=== PATIENT | female | born 1985 | race Caucasian/White ===

== ENCOUNTER 2019-09-26 15:36 | Outpatient (CLI) | payer SELFPAY ==
--- NOTE | 2019-09-26 15:46 | US_ITS ---
WS: [id number] TRANSABDOMINAL PELVIC AND TRANSVAGINAL PELVIC ULTRASOUND HISTORY: PELVIC MASS COMPARISON: None available. Uterus: 9.6 cm x 6.2 cm x 5.0 cm. Slightly enlarged uterus is anteverted. No fibroid or mass. Endometrium: 0.5 cm. Normal trilaminar endometrium. Right ovary: 2.8 cm x 2.6 cm x 2.2 cm. RIGHT ovary is poorly visualized. Small follicles. Normal size with good vascularity. Left ovary: 3.5 cm x 3.3 cm x 1.8 cm. Normal size ovary and normal vascularity with small follicles. No free fluid. US/US pelvic with transvaginal IMPRESSION: Negative pelvic ultrasound. No mass identified by ultrasound.
== END 2019-09-26 15:37 | disposition home or self-care (01) ==
LOC: RAD 15:40
PROVIDERS: Family Provider Specialist; PCP Family Medicine
DX: R19.00 Intra-abdominal and pelvic swelling, mass and lump, unspecified site (principal)
CPT/HCPCS: 76830; 76856

== ENCOUNTER → 2020-01-24 07:49 | Outpatient (BNVA) | payer SELFPAY | PROVIDERS: Family Provider Specialist; PCP Family Medicine; Visit Provider Nurse Practitioner | DX: G43.711 Chronic migraine without aura, intractable, with status migrainosus (principal) | CPT/HCPCS: 99213 ==

== ENCOUNTER 2020-03-07 06:51 | Outpatient (CLI) | payer SELFPAY ==
--- NOTE | 2020-03-07 07:00 | XR_ITS ---
WS: [id number] XR KUB [id number] REASON FOR EXAM: URETERAL STONE FINDINGS: No retroperitoneal or free air. Normal bowel gas pattern. No urinary tract calculi are identified. XR/XR KUB [id number] IMPRESSION: No significant abnormality. No urinary tract calculi identified.
== END 2020-03-07 06:52 | disposition home or self-care (01) ==
LOC: RAD 06:52
PROVIDERS: Family Provider Specialist; PCP Family Medicine; Visit Provider Urology
DX: N20.1 Calculus of ureter (principal)
CPT/HCPCS: 74018; 81001

== ENCOUNTER → 2021-10-16 15:47 | Outpatient (BNVA) | payer MEDICAID, SELFPAY | PROVIDERS: Family Provider Specialist; PCP Family Medicine; Visit Provider Nurse Practitioner | DX: R53.1 Weakness (principal); M54.12 Radiculopathy, cervical region; R20.2 Paresthesia of skin; F90.9 Attention-deficit hyperactivity disorder, unspecified type | CPT/HCPCS: 99213; 99214 ==

== ENCOUNTER 2022-08-25 10:00 | Inpatient (IN) | payer MEDICAID, SELFPAY ==
[2022-08-25] VITALS (45 sets, daily range): BP systolic 87–136; BP diastolic 52–74; PULSE 76–123; RESP 17–18; TEMP 36.8; O2SAT 92–100; BMI 36.5
[2022-08-25 09:34] LABS: Basophils # 0.1 10^3/uL (0.0-0.1); Basophils % 0.5 %; Eosinophils # 0.1 10^3/uL (0.0-0.8); Eosinophils % 0.8 %; Hematocrit 36.5 % (37.0-47.0); Hemoglobin 11.5 g/dL (11.5-15.3); Lymphocytes # 3.3 10^3/uL (0.8-4.8); Lymphocytes % 21.1 %; Mean Corpuscular HGB Conc 31.5 g/dL (30.0-36.0); Mean Corpuscular Hemoglobin 26.6 pg (28.0-34.0); Mean Corpuscular Volume 84.5 fl (81-99); Mean Platelet Volume 12.2 fL (7.4-10.4); Monocytes # 1.1 10^3/uL (0.2-0.9); Monocytes % 7.1 %; Neutrophils # 10.62 10^3/uL (1.8-7.7); Neutrophils % 68.9 %; Nucleated Red Blood Cells % 0 %; Platelet Count 266 10^3/cmm (130-400); Red Blood Count 4.32 10^6/uL (4.1-5.3); Red Cell Distribution Width 14.5 % (12.1-15.1); White Blood Count 15.4 10^3/uL (4.0-10.0)
[2022-08-25] MEDS: miSOPROStol 100 mcg tablet 25 MCG VAGINAL (09:39)
[2022-08-25] MEDS: lactated ringers 1,000 ML 999 ML IV ×2 (11:31→12:40)
--- NOTE | 2022-08-25 12:26 | P.HP_ITS ---
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 The patient's care has been unremarkable except for a delayed entrance into care. Patient's lab work was unremarkable. Patient's course has been unremarkable. Estimated due date was confirmed by second trimester ultrasound. Patient was GBS negative. Present Details : 4 Para: 3 Obstetrical complications: none Medical complications OB: none Labs Rubella: Immune RPR: Negative GBS: Negative L&D/Induction Specific History Indication for induction OB: post dates Review of Systems General: Reports: 10 or more systems reviewed and unremarkable except in HPI and below Const: Reports: fatigue; Denies: fever(s) or change in weight Eyes: Denies: change in vision, blurry vision, blind spots, photophobia, eye discomfort, seeing flashes or other (Glaucoma) ENMT: Denies: odynophagia, hoarseness, change in hearing, tinnitus, sinus pain or other (Loss of taste/smell) Card: Denies: chest pain, palpitations, syncope or other (Calf cramps) Resp: Reports: wheezing; Denies: dyspnea, non-productive cough or hemoptysis GI: Reports: nausea; Denies: abdominal pain, heartburn, diarrhea, constipation or hematochezia : Denies: urinary frequency or urinary incontinence Musc: Reports: neck pain, muscle weakness and other (Muscle pain) Skin/Breast: Denies: rash, new lesions or breast mass Neuro: Reports: headache(s) and numbness in extremities; Denies: weakness in extremities, sensory changes, difficulty walking, Slurred speech present, seizure-like activity or other (Sleep Apnea) Psych: Reports: depression, irritability, memory loss and difficulty concentrating; Denies: other (Personality changes) Endo: Denies: polyuria, polydipsia, excessive sweating or change in body appearance Sebastian/Lymph: Denies: easy bruising, easy bleeding or enlarged lymph nodes Medications/Allergies Home Medications Medication Instructions Recorded Confirmed Last Taken Type norgestimate 0.18 mg/0.215 mg/0.25 1 tab PO DAILY 02/20/20 12/23/21 Unknown History mg-ethinyl estradiol 25 mcg tablet gabapentin 300 mg capsule 300 mg PO TID 10/09/21 12/23/21 Unknown History alprazolam 0.25 mg tablet 0.25 mg PO DAILY PRN anxiety 30 12/09/21 12/23/21 Unknown Rx days #30 tabs tizanidine 2 mg tablet See Rx Instructions .Route 12/22/21 12/23/21 Unknown Rx .COMPLEX #60 tabs dextroamphetamine-amphetamine 10 10 mg PO BID 30 days #60 tabs 01/27/22 Unknown Rx mg tablet Allergies Allergy/AdvReac Type Severity Reaction Status Date / Time No Known Allergies Allergy Verified 10/16/21 15:53 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 PFSH: Medical History (Updated 08/25/22 @ 12:32 by Chidi Ramirez MD) ADD (attention deficit disorder) ADHD Anxiety Asthma Cervical radiculopathy Depression MDD (major depressive disorder) Migraine Paresthesia of both hands Psychiatric care PTSD (post-traumatic stress disorder) Renal stone Surgical History History of lithotripsy (~2018) History of tonsillectomy and adenoidectomy Family History Grandmother Breast cancer Mother Breast cancer Denies family history of Colon cancer Ovarian cancer Diabetes Heart disease Hypercholesteremia Hypertension Uterine cancer Thyroid disease Stroke Social History Smoking and tobacco status: never smoked Adopted: No Caregiver/support person: No Lives independently: Yes Marital status: Additional social history: - Tobacco use: Denies Alcohol use: Holidays/special occasions Drug use: Denies History History History 3 Term 3 0 Miscarriages/Ectopic 0 Living Children 3 Vitals/I&O/Wt Last Vital Signs Resp 17 08/25/22 09:22 O2 Del Method 08/25/22 09:22 Weight last 48 hrs Weight 93.44 kg Physical Exam Const: COMMON NORMALS: no acute distress and patient oriented x3 HENMT: COMMON NORMALS: normocephalic, hearing grossly normal bilaterally and moist oral mucous membranes Resp: COMMON NORMALS: normal respiratory effort and No use of accessory muscles Cardio: COMMON NORMALS: regular rate and regular rhythm GI: COMMON NORMALS: Normal to inspection, nondistended, normoactive bowel sounds present OTHER: Gravid Extremity: COMMON NORMALS: no clubbing, cyanosis or edema Neuro: COMMON NORMALS: moves all extremities Psych: COMMON NORMALS: mental status grossly normal Skin: COMMON NORMALS: no rashes or lesions noted Data 08/25/22 08:42 A&P Assessment and plan (1) Post term over 40 weeks: Plan was to proceed with Cytotec induction due to unfavorable cervix. Start routine labor management Attestations Medical Necessity Statement*: Anticipate less than 2 midnight stay. Coding Level of Care Code Acute Code for Chg Fwd Diagnoses Post term over 40 weeks O48.0
[2022-08-25] MEDS: fentaNYL 50 mcg/mL INJ 2mL IVP (12:38)
--- NOTE | 2022-08-25 13:24 | ANES.PREANE2 ---
Pre-Anesthetic Assessment Height/Weight: Height 1.6 m Weight 93.44 kg Resp O2 Del Method 17 08/25/22 12:38 08/25/22 09:22 Preop Diagnosis: labor Epidural Familial anesthetic complications: none Was Beta Jacob taken within 24 hours: N/A Was Clonidine taken within 24 hours: N/A Last Intake: 23:00 Social No alcohol and No tobacco Exam alert, oriented x 3, clear to auscultation bilaterally and regular rate & rhythm Airway Submandibular: within normal limits Cervical ROM: within normal limits Mallampati: Class II Dentition: full Pulmonary None reported CV/HEM None reported None reported Hepatic None reported GI None reported Metabolic None reported Musc/skel None reported Neuropsych Anxiety and Depression Anesthetic Plan ASA status: 2 Anesthesia: Regional (specify below) (epidural) Medications/Allergies Home Medications Medication Instructions Recorded Confirmed Last Taken Type norgestimate 0.18 mg/0.215 mg/0.25 1 tab PO DAILY 02/20/20 12/23/21 Unknown History mg-ethinyl estradiol 25 mcg tablet gabapentin 300 mg capsule 300 mg PO TID 10/09/21 12/23/21 Unknown History alprazolam 0.25 mg tablet 0.25 mg PO DAILY PRN anxiety 30 12/09/21 12/23/21 Unknown Rx days #30 tabs tizanidine 2 mg tablet See Rx Instructions .Route 12/22/21 12/23/21 Unknown Rx .COMPLEX #60 tabs dextroamphetamine-amphetamine 10 10 mg PO BID 30 days #60 tabs 01/27/22 Unknown Rx mg tablet Allergies Allergy/AdvReac Type Severity Reaction Status Date / Time No Known Allergies Allergy Verified 10/16/21 15:53 Current Medications Generic Name Dose Route Start Last Admin Trade Name Freq PRN Reason Stop Dose Admin Fentanyl 25 - 100 mcg 08/25/22 09:21 08/25/22 12:38 Fentanyl 50 Mcg/Ml Inj 2ml IVP 25 mcg Q1H PRN Administration SEVERE PAIN Misoprostol 25 mcg 08/25/22 09:30 08/25/22 09:39 Misoprostol 100 Mcg Tablet VAGINAL 08/25/22 17:31 25 mcg Q4H SHARONA Administration PFSH Anesthesia Medical History (Updated 08/25/22 @ 12:32 by Chidi Ramirez MD) ADD (attention deficit disorder) ADHD Anxiety Asthma Cervical radiculopathy Depression MDD (major depressive disorder) Migraine Paresthesia of both hands Psychiatric care PTSD (post-traumatic stress disorder) Renal stone Surgical History History of lithotripsy (~2019) History of tonsillectomy and adenoidectomy Family History Grandmother Breast cancer Mother Breast cancer Denies family history of Colon cancer Ovarian cancer Diabetes Heart disease Hypercholesteremia Hypertension Uterine cancer Thyroid disease Stroke Social History Smoking and tobacco status: never smoked Adopted: No Caregiver/support person: No Lives independently: Yes Marital status: Additional social history: - Tobacco use: Denies Alcohol use: Holidays/special occasions Drug use: Denies Female Reproductive History : 4 Data Anesthesia 08/25/22 08:42 Short CBC 08/25/22 Range/Units 08:42 WBC 15.4 H (4.0-10.0) 10^3/uL Hgb 11.5 (11.5-15.3) g/dL Hct 36.5 L (37.0-47.0) % MCV 84.5 (81-99) fl Plt Count 266 (130-400) 10^3/cmm Neut % (Auto) 68.9 % Neut # (Auto) 10.62 H (1.8-7.7) 10^3/uL Cardiac Studies: No Data to Display
--- NOTE | 2022-08-25 13:53 | ANES.PROC ---
Anesthesia Procedures Procedure/Date: 08/25/22 Epidural: Time Out Performed: Yes Consents Signed: Procedure Consent and NPO Consent Consent: requested by attending/covering physician, from patient, risks and benefits reviewed and patient agrees to proceed Lumbar Level: L3-L4 Epidural position: sitting Epidural procedure: sterile prep of area (betadine), 1% lidocaine to numb the area (3ml), 18 g needle, negative for paresthesia passed, neg for paresthesia, test dose given, 1.5% xylocaine 1:200k epi (3ml/2ml), 0.2% Ropivacaine bolus ml (5ml), placed PCEA, no systemic response, sterile dressing applied, L.U.D. no apparent complications and 0.2% Ropiavacaine @ mls/hr (13ml/hr)
[2022-08-25] MEDS: dextrose 5%-lactated ringers 1,000 ML 125 ML IV (14:45)
[2022-08-25] MEDS: oxytocin 30 UNIT/500 ML BAG 600 UNIT IV (15:21)
--- NOTE | 2022-08-25 15:36 | P.PCNOB_ITS ---
Delivery Note: Date of delivery: August 25, 2022 Pre-delivery diagnoses: Term intrauterine . Post-delivery diagnoses: Same, viable infant male Procedure: Spontaneous vaginal delivery Delivering Physician: Dr. Ward Ramirez Estimated blood loss (mL): 300 Pre-Delivery Course: This is a 36-year-old G4, P3 now 4 that presented for induction of labor. The patient received 1 dose of Cytotec and within 2 hours was tiana regularly and went into tachysystole briefly. This did resolve with some interventions including fluids. Patient received an epidural and overall labor progressed as expected afterwards until completely dilated. Delivery: This patient was dilated heart tones did show some decelerations and and were nonreassuring. However these did improve with mater nal oxygenation. It then started to push and within several pushes the patient did deliver a viable infant male patient then delivered placenta without incident. Cervix was noted to be firm at this time. The perineum did show a small second-degree perineum that was repaired with 3-0 Vicryl. At the end of the procedure bleeding was well controlled and maternal status was stable Post-Delivery Status: Stable History History History 4 Term 4 0 Miscarriages/Ectopic 0 Living Children 4 A&P Assessment and plan (1) Post term over 40 weeks: (2) Normal vaginal delivery: Proceed with routine care. Coding Level of Care Code Acute Code for Chg Fwd Diagnoses Post term over 40 weeks O48.0 Normal vaginal delivery O80
[2022-08-25] MEDS: HYDROcodone-acetaminophen 5-325 mg Tablet PO (18:25)
[2022-08-25] MEDS: ibuprofen 800 mg tablet PO (21:01)
[2022-08-25] MEDS: lanolin oint 7 gm 1 APPLIC TOPICAL (21:02)
[2022-08-26] MEDS: HYDROcodone-acetaminophen 5-325 mg Tablet PO ×4 (00:29→18:37)
[2022-08-26] MEDS: acetaminophen 325 mg Tablet 650 MG PO (04:24)
[2022-08-26 04:27] VITALS: BP 106/72; PULSE 83; RESP 18; TEMP 36.6; TEMP 36.7; O2SAT 97
[2022-08-26 04:37] LABS: Hematocrit 34.1 % (37.0-47.0); Hemoglobin 10.9 g/dL (11.5-15.3); Mean Corpuscular Hemoglobin 27.4 pg (28.0-34.0); Mean Corpuscular Volume 85.7 fl (81-99); Mean Platelet Volume 11.9 fL (7.4-10.4); Platelet Count 226 10^3/cmm (130-400); Red Blood Count 3.98 10^6/uL (4.1-5.3); Red Cell Distribution Width 14.5 % (12.1-15.1); White Blood Count 21.1 10^3/uL (4.0-10.0)
--- NOTE | 2022-08-26 05:51 | P.PN_ITS ---
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 Patient's not had any complications since delivery. The patient does have significant pain at the site of epidural that is exacerbated by movement. Patient denies any radiation of her pain. Patient has been up ambulating and voided without issues. Lochia has been appropriate. Patient denies any other concerns. Labor: Station: +3 Amniotic Membrane Status: Ruptured Monitor Mode: External Contraction Pattern: Regular Post /CS: [place] baby status: doing well Vitals/I&O/Wt Last Vital Signs Temp 98.0 F 08/26/22 04:27 Pulse 83 08/26/22 04:27 Resp 18 08/26/22 04:27 BP 106/72 08/26/22 04:27 Pulse Ox 97 08/26/22 04:27 O2 Del Method 08/26/22 04:27 O2 Flow Rate 10 08/25/22 11:31 08/25/22 08/25/22 08/26/22 14:59 22:59 06:59 Intake Total 1999 910.25 / 2910.25 Balance 1999 910.25 / 2910.25 Weight last 48 hrs Weight 93.44 kg Physical Exam Const: COMMON NORMALS: no acute distress and patient oriented x3 HENMT: COMMON NORMALS: normocephalic, hearing grossly normal bilaterally and moist oral mucous membranes HEAD & SCALP: normocephalic Resp: COMMON NORMALS: normal respiratory effort and No use of accessory muscles Cardio: COMMON NORMALS: regular rate and regular rhythm RATE: regular rate RHYTHM: regular rhythm GI: COMMON NORMALS: Normal to inspection, nondistended, normoactive bowel sounds present OTHER: Gravid Extremity: COMMON NORMALS: no clubbing, cyanosis or edema Neuro: COMMON NORMALS: patient oriented x3 and moves all extremities Psych: COMMON NORMALS: mental status grossly normal Skin: COMMON NORMALS: no rashes or lesions noted GENERAL SKIN EXAM: no rashes or lesions noted Data 08/26/22 04:30 A&P Assessment and plan (1) Normal vaginal delivery: Continue routine care. Patient may discharge later today. Attestations Medical Necessity Statement*: Anticipate discharge this afternoon or possibly tomorrow. Coding Level of Care Code Acute Code for Chg Fwd Diagnoses Normal vaginal delivery O80
[2022-08-26] MEDS: prenatal vitamin Capsule 1 CAP PO (09:32)
[2022-08-26] MEDS: ibuprofen 800 mg tablet PO ×3 (09:32→21:02)
[2022-08-26] MEDS: docusate sodium 100 mg Capsule PO ×2 (09:33→18:38)
[2022-08-26 09:36] VITALS: BP 114/73; PULSE 97; RESP 18; TEMP 36.8; O2SAT 98
--- NOTE | 2022-08-26 09:44 | PC.NURSE ---
Pt called out for pain medication. Pt rates pain 10/10 and reports it is in her back where her epidural was. She reports it is sharp stabbing with every move and takes her breath away. This nurse assessed site. No bruising noted. Pt denies any numbness ot tingling anywhere and denies problems with urinating, denies headache. Pt has taken Tylenol, Hydrocodone, Motrin, and has a K-pad. Dr. Golden from anesthesia notified and reported he would be over to assess pt in a while.
--- NOTE | 2022-08-26 10:51 | ANE.PACU2 ---
Inpatient post-anesthesia follow up: Airway intact: Yes Vital signs: Temperature 98.3 F Pulse Rate 97 Respiratory Rate 18 Blood Pressure 114/73 Pulse Oximetry 98 Oxygen Delivery Me thod Room Air Oxygen Flow Rate 10 Fraction of Inspir ed Oxygen Hydration adequate: Yes Nausea and vomiting: No Pain level: 6 (with movement) Mental status: Baseline Additional Comments: Patient c/o excruciating back pain with movement. No radicular pain or pain at rest. No numbness or tingling in extremities. No bruising or bleeding over epidural site. Slight tenderness to palpation. Recommend contd pain management per OB with alternating warm and cold compress. If radicular symptoms develop please notify. Discussed with patient.
[2022-08-26 15:15] VITALS: TEMP 37.3
--- NOTE | 2022-08-26 15:15 | PC.NURSE ---
This nurse entered room to take baby to nursery for 24 hour testing. Pt reported having body aches and chills that just started. This film writer took pt temperature and it was 99.2 F axillary. Discussed with pt to keep this nurse informed of any other issues.
[2022-08-26 16:23] VITALS: BP 103/62; PULSE 120; RESP 20; TEMP 37.9; O2SAT 98
--- NOTE | 2022-08-26 16:37 | CTR_ITS ---
PROCEDURE INFORMATION: Exam: CT Lumbar Spine Without Contrast Exam date and time: 08/26/2022 5:23 PM Age: 36 years old Clinical indication: Low back pain; Additional info: Post epidural back pain TECHNIQUE: Imaging protocol: Computed tomography of the lumbar spine without contrast. Axial, coronal and sagittal reformatted images were created and reviewed. Radiation optimization: All CT scans at this facility use at least one of these dose optimization techniques: automated exposure control; mA and/or kV adjustment per patient size (includes targeted exams where dose is matched to clinical indication); or iterative reconstruction. REPORTING DATA: Count of CT and Cardiac NM exams in prior 12 months: This patient has received 0 known CTs and 0 known cardiac nuclear medicine studies in the 12 months prior to the current study. COMPARISON: CT kidney stone [id number] 04/09/2019 5:08 AM RADIATION DOSE METRICS: Total DLP (mGy-cm): 869.41 FINDINGS: Bones/joints: Normal lumbar lordosis. No CT evidence of acute fracture, dislocation or subluxation. Alignment anatomic. Vertebral body heights maintained. Soft tissues: Minimal gas in the spinal canal and dorsal subcutaneous tissues, likely postprocedural. CT/CT lumbar spine wo con* [id number] IMPRESSION: No acute findings.
[2022-08-26 17:16] LABS: Basophils # 0.1 10^3/uL (0.0-0.1); Basophils % 0.3 %; Eosinophils % 0.1 %; Hematocrit 34.4 % (37.0-47.0); Hemoglobin 11.1 g/dL (11.5-15.3); Lymphocytes % 4.4 %; Mean Corpuscular HGB Conc 32.3 g/dL (30.0-36.0); Mean Corpuscular Hemoglobin 27.3 pg (28.0-34.0); Mean Corpuscular Volume 84.5 fl (81-99); Mean Platelet Volume 11.8 fL (7.4-10.4); Monocytes # 1.6 10^3/uL (0.2-0.9); Monocytes % 7.4 %; Neutrophils # 18.84 10^3/uL (1.8-7.7); Neutrophils % 86.9 %; Nucleated Red Blood Cells % 0 %; Platelet Count 231 10^3/cmm (130-400); Red Blood Count 4.07 10^6/uL (4.1-5.3); Red Cell Distribution Width 14.6 % (12.1-15.1); White Blood Count 21.7 10^3/uL (4.0-10.0)
--- NOTE | 2022-08-26 17:30 | PC.NURSE ---
Pt escorted to CT via wheelchair, this nurse with pt.
[2022-08-26] MEDS: ampicillin-sulbactam 1.5 GM in sodium chloride 0.9% (plus) 50 ML IV (18:15)
[2022-08-26 18:59] LABS: Alanine Aminotransferase 7 U/L (0-33); Alkaline Phosphatase 163 U/L (35-105); Aspartate Amino Transferase 21 U/L (0-32); Blood Urea Nitrogen 7 mg/dL (6-20); Calcium 7.8 mg/dL (8.5-10.5); Carbon Dioxide 21 mmol/L (22-29); Chloride 97 mmol/L (98-107); Globulin 3.2 g/dL (1.3-4.6); Glomerular Filtration Rate 95.8 mL/min (90-130); Glucose 105 mg/dL (65-115); Osmolality Calculated 270 mOsm/kg (285-295); Sodium 131 mmol/L (136-145); Total Bilirubin 0.2 mg/dL (0.15-1.2); Total Protein 6.2 g/dL (6.6-8.7)
[2022-08-26] MEDS: hyDROXYzine 25 mg Capsule 50 MG PO (19:04)
--- NOTE | 2022-08-26 20:00 | PC.NURSE ---
1620: This nurse entered room to assess routine VS. Pt reported to still have chills and body aches and reports she feels worse than earlier. VS were 100.2 F oral, pulse 120, RR 20, SpO2 98%, BP 103/62. 1626: Dr. Golden notified that pt now has fever. Pt still reporting back pain where epidural was. Received orders for spine CT. 1631 Dr. Ramirez notified at this time about pt fever, pain, body aches, chills and reported pt WBC from admission and post delivery. Reported that pt has had intense lower back pain from where her epidural was. Dr Golden has assessed pt. Dr. Golden ordered spine CT, but does not believe the fever is related to epidural. Reported that pt denies any foul smelling vaginal discharge or increasing abdominal pain. Received orders for CBC and Unasyn 1.5 grams every 6 hours IV. Discussed orders with pt. answered her questions. She and her significant other verbalized understanding. 1817: Dr. Golden called and this ticket writer reported CT results no acute findings. No new orders received. 1828: Dr. Ramirez notified of CBC results and CT results. This ticket writer reported that blood cultures x 2 were obtained and red top and green top as well, prior to start of antibiotics. Received order to go ahead and order blood cultures and CMP. 1850: This ticket writer answered pt call light and pt reported my symptoms are back . Pt was lying on her left side under her blankets. Her teeth were chattering and her body was trembling, she was diaphoretic. This nurse reported that there wasn't any medication I could give her at the time and her visitor stated She's not asking for anything. The pt reported that she just wanted to notify the nurse so it would be documented. The pt stated, I don't know why this is happening, I just want to know whats wrong with me and why I feel so sick. Discussed with pt that the suspects an infection somewhere and that he ordered blood work and antibiotics to help treat the infection. This ticket writer had noted earlier that pt had a hx of anxiety, so this ticket writer asked pt if she takes any medication for anxiety. Her visitor stated, This isn't anxiety. This ticket writer replied that that is not was I was saying, I asked about anxiety medication because I noticed on her chart that she reported taking hydroxyzine, and that withdrawal from anxiety medications may be the cause of some of her symptoms. Pt reports that she only takes hydroxyzine as needed and she does not take it often. This nurse asked pt if she would like to take hydroxyzine to help her rest. Pt reported yes that she would like that. 1900: This nurse entered room to give pt hydroxyzine and pt reported that she noticed her symptoms flare up after/during breast feeding. Pt reports she feels strong cramps and then breaks out in a sweat and chills. This nurse discussed the possibility of a uterine infection or even the possibility of D-LUIS.
--- NOTE | 2022-08-26 21:20 | PC.NURSE ---
This nurse was at bedside at this time. This nurse overheard pt tell her she was tired and just wanted to go to sleep and she couldn't do this anymore.
--- NOTE | 2022-08-26 21:20 | PC.NURSE ---
This nurse at bedside at this time. Pt's complaints of severe spinal pain, shaking uncontrollably, crying hysterically, anxious. Pt states Nobody should be hurting this bad unless they are dying, my pain is not being controlled. We want to go somewhere else. Pt and pt's requested for Dr. Ramirez to come to bedside at this time. This nurse stated she would call him and let him know to come and assess pt.
[2022-08-26 21:25] VITALS: BP 121/63; PULSE 113; RESP 20; TEMP 37.5; O2SAT 95
--- NOTE | 2022-08-26 21:50 | PC.NURSE ---
This nurse and Dr. Ramirez at bedside at this time. Pt states to Dr. Ramirez I can't live like this. I'm in so much pain I can't walk or feed my baby. Pt's stated he wanted her pain controlled until the antibiotics had time to do their job. Dr. Ramirez discussed previous plan of care including lumbar CT, Dr. Golden consulted, labs drawn including blood cultures, and she was being treated with ampicillin. Dr. Ramirez also stated that he believes it's a muscle spasm and he would get her pain under control, change her pain medication, and add something for the muscle spasms. As this nurse and Dr. Ramirez went to exit the room, pt began screaming she was having severe chest pain and her heart was hurting. Dr. Ramirez palpated the medial chest and stated It is reproducable with palpation. This nurse took vitals at this time, placed continuous pulse ox, and ordered stat EKG. Dr. Ramirez stated he would enter orders for medications.
--- NOTE | 2022-08-26 22:07 | PM.MISC ---
Miscellaneous Note Note: This is a 36-year-old G4, P4 that had delivered a viable infant male via spontaneous vaginal delivery just over 24 hours ago. Patient has been having significant back pain located at the site of epidural. Patient has been receiving Motrin and hydrocodone and her pain is not well managed. She was evaluated by anesthesia and they were unable to determine cause of pain CT of the L-spine was obtained and performed which was normal. Patient did run elevated temperature of 100.2. Patient was then started on Unasyn for presumed endometritis. Patient continued to have significant pain and had increased anxiety. Patient requested reevaluation and additional pain management. Patient is still not exhibiting any radicular symptoms. The patient's pain is well localized at the site of injection. She did report some chest pain that was reproducible with palpation EKG was ordered as well as additional pain management with IV narcotics and muscle relaxers. Exam was unchanged and injection site was unremarkable. Patient did not have any surrounding erythema,, bruising, or hematoma noted at the site of injection. Patient was noted to be tachycardic but normal rhythm was noted. Patient was nonlabored breathing with clear lungs to auscultation. Patient did have some tenderness overlying the uterus consistent with previous diagnosis.
--- NOTE | 2022-08-26 22:16 | ECG_ITS ---
[facility] Test Date: 2022-08-26 Pat Name: Harleen Gomez Department: Room: OB8 Gender: Female Clock Smith: : 1985 Requested By: Chidi Gayle Order Number: [id number] Everardo MD: Rosy Paris M.D. Measurements Intervals [place] Rate: 113 P: 42 WY: 133 QRS: 69 QRSD: 83 T: 34 QT: 303 QTc: 417 Interpretive Statements SINUS TACHYCARDIA MODERATE T-WAVE ABNORMALITY, CONSIDER ANTERIOR ISCHEMIA [-0.1+ mV T-WAVE IN V3/V4] Compared to ECG 09/12/2015 18:48:54 T-wave abnormality now present Possible ischemia now present Electronically Signed On 08-26-2022 23:56:51 CDT by Rosy Paris M.D. [email or web address] [employer] [email or web address].[employer]/store/OM/[id number]
--- NOTE | 2022-08-26 22:16 | PC.NURSE ---
Respiratory at bedside at this time to perform EKG. After performing EKG, Edie from respiratory asked to print EKG and Dr. Ramirez walked up and Edie showed the EKG to Dr. Ramirez and this nurse. Dr. Ramirez stated Beautiful and this nurse and Dr. Ramirez went to pt's room.
[2022-08-26] MEDS: orphenadrine 30 mg/mL Inj 2 mL 60 MG IM (22:21)
[2022-08-26] MEDS: HYDROmorphone 1 mg/mL INJ 1 mL 0.5 MG IVP (22:21)
--- NOTE | 2022-08-26 22:21 | PC.NURSE ---
This nurse and Dr. Ramirez at bedside at this time. Dr. Ramirez stated the EKG was unremarkable and he did not see anything concerning. Pt given medications ordered by Dr. Ramirez. Pt stated she wanted to rest because she hadn't slept for 2 days.
[2022-08-26 23:19] VITALS: BP 104/61; PULSE 116; RESP 20; TEMP 37.1; O2SAT 97
[2022-08-27] VITALS (17 sets, daily range): BP systolic 87–104; BP diastolic 47–64; PULSE 84–140; RESP 16–26; TEMP 36.8–39.6; O2SAT 93–100
--- NOTE | 2022-08-27 00:04 | PC.NURSE ---
This nurse reported to Dr. Ramirez the interpretation from [facility] about the pt's EKG, reading the interpretation verbatim. Dr. Ramirez had no concerns. This nurse stated concern about the ischemia. Dr. Ramirez stated The pt did have rebound tenderness and the EKG interpretation is just how it's worded. Dr. Ramirez stated to give the percocet at this time because the pt was still hurting and upset.
[2022-08-27] MEDS: oxyCODONE-APAP 10-325 mg Tablet 1 TAB PO ×5 (00:49→22:10)
[2022-08-27] MEDS: ampicillin-sulbactam 1.5 GM in sodium chloride 0.9% (plus) 50 ML IV ×2 (00:49→06:29)
[2022-08-27] MEDS: benzocaine-menthol 78 gm Canister 1 SPRAY TOPICAL (00:49)
--- NOTE | 2022-08-27 00:49 | PC.NURSE ---
This nurse at bedside at this time to hang antibiotics. Pt stated It's happening again. Pt began shaking uncontrollably, began panicking, and pt's heart went into the 140s. Pt stated to she was scared. This nurse attempted to reassure the pt. This nurse went to the nurse's station and spoke with Jaswinder Casillas RN, charge nurse, and Jaswinder Casillas RN called Dr. Ramirez.
--- NOTE | 2022-08-27 01:50 | PC.NURSE ---
This nurse went to the ER and consulted with the ER nurses on staff and the ER physician, Dr. Butler, about their interpretation of the pt's EKG. Dr. Butler stated the pt's EKG looked fine but the pt possibly needed a chest CT to rule out pulmonary embolus.
[2022-08-27 02:19] LABS: Basophils # 0.1 10^3/uL (0.0-0.1); Basophils % 0.3 %; Hematocrit 34.2 % (37.0-47.0); Hemoglobin 11.1 g/dL (11.5-15.3); Lymphocytes % 3.7 %; Mean Corpuscular HGB Conc 32.5 g/dL (30.0-36.0); Mean Corpuscular Hemoglobin 27.2 pg (28.0-34.0); Mean Corpuscular Volume 83.8 fl (81-99); Mean Platelet Volume 11.5 fL (7.4-10.4); Monocytes # 1.7 10^3/uL (0.2-0.9); Monocytes % 6.1 %; Neutrophils # 24.92 10^3/uL (1.8-7.7); Neutrophils % 88.6 %; Nucleated Red Blood Cells % 0 %; Platelet Count 213 10^3/cmm (130-400); Red Blood Count 4.08 10^6/uL (4.1-5.3); Red Cell Distribution Width 14.6 % (12.1-15.1); White Blood Count 28.2 10^3/uL (4.0-10.0)
[2022-08-27 02:25] LABS: D Dimer 2.83 ug/mIFEU (0-0.59)
[2022-08-27 02:28] LABS: Anion Gap 14.7 (5-19); Blood Urea Nitrogen 6 mg/dL (6-20); Calcium 7.9 mg/dL (8.5-10.5); Carbon Dioxide 19 mmol/L (22-29); Chloride 99 mmol/L (98-107); Glomerular Filtration Rate 82.1 mL/min (90-130); Glucose 105 mg/dL (65-115); Osmolality Calculated 266 mOsm/kg (285-295); Potassium 3.7 mmol/L (3.5-5.1); Sodium 129 mmol/L (136-145)
[2022-08-27 02:29] LABS: Troponin T (5th) Once 6 ng/L (0-10)
[2022-08-27] MEDS: ALPRAZolam 0.5 mg Tablet PO (02:36)
--- NOTE | 2022-08-27 05:03 | CTR_ITS ---
PROCEDURE INFORMATION: Exam: CTA Chest With Contrast Exam date and time: 08/27/2022 5:34 AM Age: 36 years old Clinical indication: Abnormal findings; Abnormal diagnostic tests; Elevated d-dimer; Shortness of breath and tachypnea; Patient HX: SOB and tachypnea with persistent tachycardia. Elevated d dimer. 24 hour s post . ; Additional info: Rule out pe TECHNIQUE: Imaging protocol: Computed tomographic angiography of the chest with contrast. 3D rendering (Not supervised by radiologist): MIP and/or 3D reconstructed images were created by the technologist. Radiation optimization: All CT scans at this facility use at least one of these dose optimization techniques: automated exposure control; mA and/or kV adjustment per patient size (includes targeted exams where dose is matched to clinical indication); or iterative reconstruction. Contrast material: OMNI 350; Contrast volume: 150 ml; Contrast route: INTRAVENOUS (IV); REPORTING DATA: Count of CT and Cardiac NM exams in prior 12 months: This patient has received [address] and 0 known cardiac nuclear medicine studies in the 12 months prior to the current study. COMPARISON: CR XR chest 2V* [id number] 09/12/2015 11:37 PM RADIATION DOSE METRICS: Total DLP (mGy-cm): 821.82 FINDINGS: Pulmonary arteries: No CT evidence for segmental pulmonary emboli. The main pulmonary arteries and outflow trunk are unremarkable. Aorta: No thoracic aortic aneurysm. No thoracic aortic dissection. Trachea: The central airway is normal. Lungs: There are normal lung volumes. There is no CT evidence of interstitial lung disease. There is no consolidation. Pleural spaces: No pneumothorax. No pleural effusion. Heart: The heart size is within normal limits. The RV/LV ratio is normal at 0.9 (no CT evidence of RV strain). There is no pericardial effusion. No coronary arterial atherosclerotic vascular calcifications. Lymph nodes: No enlarged lymph nodes. Bones/joints: No acute osseous abnormalities. Soft tissues: Unremarkable. Other findings: The non-contrast opacified stomach is not well distended with relative gastric fold prominence. Assessment is limited. Suspected tiny hiatal hernia. CT/CT angio chest PE protcl [id number] IMPRESSION: 1. No CTA evidence of pulmonary embolism, thoracic aortic aneurysm or thoracic aortic dissection. 2. Unremarkable CT appearance of the lungs. 3. Suspected tiny hiatal hernia.
[2022-08-27] MEDS: iohexol 350 mg/mL 500 mL Btl (per mL) IV (05:44)
--- NOTE | 2022-08-27 05:45 | PC.NURSE ---
pt back to room from CT at this time.
[2022-08-27] MEDS: cyclobenzaprine 10 mg Tablet PO (07:02)
--- NOTE | 2022-08-27 07:05 | PC.NURSE ---
Collections And Archives Director and Jignesh Guallpa RN in to do bedside shift report. Patient reports 10/10 pain and is sobbing. Patient states she needs up to the bathroom and is assisted by 1 person to bathroom. During walk to bathroom patient crying out in pain and screaming I can't do this anymore, this hurts so bad. Why isn't anyone helping me? Patient reassured and assisted with pericare and then assisted back to bed. MAR reviewed and patient given Vistaril and Percocet per orders.
[2022-08-27] MEDS: hyDROXYzine 25 mg Capsule 50 MG PO ×2 (07:16→22:10)
--- NOTE | 2022-08-27 07:51 | PC.NURSE ---
Dr. Nj at bedside at this time.
--- NOTE | 2022-08-27 08:13 | PM.OBGYPN ---
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 The patient continues to have severe pain in her back at the site of epidural injection. Patient did receive significant pain medication overnight and anxiolytic with alprazolam which seemed to help her get rest and provide pain relief. However, the patient did spike a 103 fever this morning. The patient is tachycardic and slightly tachypneic. Patient continues to have pain just at the epidural site and denies any other pain or radicular symptoms. The patient has received multiple doses of Unasyn without improvement. The patient underwent CT of the L-spine which was normal. Patient underwent a CTA of the chest today due to elevated D-dimer and it was also negative. No source of infection has been identified at this time. Labor: Station: +3 Amniotic Membrane Status: Ruptured Monitor Mode: External Contraction Pattern: Regular Vitals/I&O/Wt Last Vital Signs Temp 103.0 F H 08/27/22 07:20 Pulse 136 H 08/27/22 07:20 Resp 26 H 08/27/22 07:20 BP 104/54 08/27/22 07:20 Pulse Ox 93 08/27/22 07:20 O2 Del Method 08/27/22 07:20 O2 Flow Rate 10 08/25/22 11:31 08/26/22 08/27/22 08/27/22 22:59 06:59 14:59 Intake Total 50 / 50 1050 / 1100 Balance 50 / 50 1050 / 1100 Weight last 48 hrs Weight 93.44 kg Physical Exam Const: COMMON NORMALS: patient oriented x3 GENERAL APPEARANCE: in distress and anxious HENMT: COMMON NORMALS: normocephalic, hearing grossly normal bilaterally and moist oral mucous membranes HEAD & SCALP: normocephalic Neck/C-Spine: GENERAL: Yes normal visual inspection, No lymphadenopathy and No Meningeal signs present Chest: COMMONS NORMALS: normal inspection of the chest CHEST: Yes tenderness costochondral junction Resp: COMMON NORMALS: normal respiratory effort and No use of accessory muscles Cardio: COMMON NORMALS: regular rhythm RATE: tachycardic RHYTHM: regular rhythm GI: COMMON NORMALS: Normal to inspection, nondistended, normoactive bowel sounds present : COMMON NORMALS: Yes no CVA tenderness BLADDER/KIDNEY EXAM: Yes no CVA tenderness Back/Pelvis: COMMON NORMALS: no CVA tenderness and thoracic and lumbar spine normal to inspection LUMBAR SPINE/LOWER BACK: Yes pain with ROM and Yes lumbar spinal tenderness (Overlying site of epidural injection. No overlying erythema or warmth.) Extremity: COMMON NORMALS: no clubbing, cyanosis or edema Neuro: COMMON NORMALS: patient oriented x3 and moves all extremities Psych: COMMON NORMALS: mental status grossly normal MOOD & AFFECT: Yes anxious, Yes tearful and Yes fearful Skin: COMMON NORMALS: no rashes or lesions noted GENERAL SKIN EXAM: no rashes or lesions noted Data 08/27/22 02:02 08/27/22 02:02 Micro: Microbiology 08/26/22 17:45 Blood Culture - Preliminary Blood SPECIMEN COLLECTED 08/26/22 17:00 Blood Culture - Preliminary Blood SPECIMEN COLLECTED A&P Assessment and plan (1) Normal vaginal delivery: Lochia is appropriate. Continue care. (2) Sepsis after obstetrical procedure: Unable to locate source at this time. Possibilities include endometritis and possible epidural abscess especially given the fact that she has pain at the site of injection. CT of the L-spine performed yesterday did not demonstrate any sign of abscess but this needs to be investigated further with MRI. The hospitalist on-call has been consulted given the patient's significant decline and possible need for higher level of care.. Patient will be started on IV fluids and transitioned to broad-spectrum antibiotics with vancomycin and Zosyn. Also obtain UA via cath specimen and obtain urine culture. Blood cultures are still pending. (3) Lumbar spine pain: Obtain MRI as above. Attestations Medical Necessity Statement*: Anticipate the patient will likely need greater than 2 midnight stay. Time Spent in Patient Care: Greater than 35 minutes Coding Level of Care Code Acute Code for [facility] Fwd Diagnoses Normal vaginal delivery O80 Sepsis after obstetrical procedure O86.04 Lumbar spine pain M54.50
--- NOTE | 2022-08-27 08:31 | MR_ITS ---
WS: [id number] MRI LUMBAR SPINE WITH AND WITHOUT CONTRAST. HISTORY: fever, leukocytosis, severe pain over recent epidural site COMPARISON: Prior lumbar spine CT 08/26/2022. TECHNIQUE: Sagittal and axial multisequence imaging is submitted. 20 mL MultiHance. Status post recent . The uterus is enlarged and heterogeneous. Normal lumbar alignment. Mil d disc desiccation at L4-5. No epidural fluid collection or enhancing mass. No hematoma. There is no mass effect upon the conus o r nerve roots. Conus terminates normally at L1-2 disc level. L1-L2: Normal. L2-L3: Normal. L3-L4: Minimal disc bulge. L4-L5: Small central disc protrusion with annular fissure. Mild central, subarticular recess and fora helga stenosis. L5-S1: No stenosis. Seen only on the sagittal imaging is mild thickening of the expected location of the RIGHT ovarian ve in. MR/MR lumbar spine wo/w con [id number] IMPRESSION: 1. No epidural hematoma. No mass effect upon the cord or nerve roots. 2. Very small central disc protrusion at L4-5. 3. Very mild heterogeneity in the expected location of the RIGHT pelvic veins. Consider septic thrombophlebitis as possible etiology if this has not been con sidered. Notified Presley Nj MD at 08/27/2022 1:16 PM.
[2022-08-27 08:46] LABS: Alanine Aminotransferase 8 U/L (0-33); Albumin Level 3.1 g/dL (3.5-5.2); Alkaline Phosphatase 152 U/L (35-105); Aspartate Amino Transferase 18 U/L (0-32); Globulin 3.2 g/dL (1.3-4.6); Total Bilirubin 0.2 mg/dL (0.15-1.2); Total Protein 6.3 g/dL (6.6-8.7)
[2022-08-27 08:53] LABS: Lactate (Lactic Acid level) 2.8 mmol/L (0.5-2.2)
[2022-08-27] MEDS: docusate sodium 100 mg Capsule PO ×2 (08:56→18:41)
[2022-08-27] MEDS: lactated ringers 1,000 ML 999 ML IV (08:56)
[2022-08-27] MEDS: prenatal vitamin Capsule 1 CAP PO (08:56)
--- NOTE | 2022-08-27 09:03 | PC.PHAR ---
Pharmacy to dose consult was processed for this patient on Zosyn and Vancomycin. With her current renal function and weight-based dosing, the following regimens were entered: High-Trough Vancomycin 1250mg every 8 hours for a predicted peak of 34.5 mcg/ml and trough of 17.87 mcg/ml. Zosyn 3.375 gm every 8 hours with an extended dosing infusion time of 4 hours. Will continue to monitor the patient's renal function and make adjustments as necessary. Please let us know if there is anything else that you need. Thanks, Rui Browning, Pharm.D
[2022-08-27 09:46] LABS: Urine Appearance Clear (CLEAR); Urine Color Yellow (Yellow); pH Urine 5 (5-7)
[2022-08-27 09:47] LABS: Bilirubin Urine Neg (Negative); Blood Urine 2+ (Negative); Glucose Urine UA Norm (Normal); Ketones Urine 1+ (Negative); Leukocyte Esterase Urine Negative (Negative); Nitrate Urine Negative (Negative); Protein Urine 1+ (Negative); Specific Gravity, Urine 1.005 (1.005-1.030); Urobilinogen Urine 1 mg/dL (Negative)
[2022-08-27 09:48] LABS: Add Urine Culture? No; Mucus Urine TRACE /hpf; Squamous Epithelial Cell Urine 0-4 /hpf (0-5); WBC Urine 0-4 /hpf (0-5)
[2022-08-27] MEDS: lactated ringers 1,000 ML 125 ML IV ×2 (09:51→20:44)
[2022-08-27] MEDS: vancomycin 1,250 MG/250 ML PIGGYBACK 250 MG IV ×2 (09:51→17:21)
--- NOTE | 2022-08-27 09:53 | P.CONIM_ITS ---
Providers/Reason For Consult Consulting Physician/Specialty*: Presley Nj MD, Hospitalist Reason for Consult*: Fever, back pain Requesting Physician: Dr. Ramirez Attending Physician: Chidi Ramirez MD Primary Care Provider: Anuj Valentin MD History of Present Illness History of Present Illness Harleen Gomez is a 36 year old G4 now P4 female who presented to the hospital on August 25, at 40 weeks and 2 days for induction of labor. She was GBS negative. An epidural was performed shortly after admission. Patient rep orts she had the usual pain with placement of the epidural, and it seemed to be effective during her delivery which occurred later on that day. Following the delivery, she has had significant pain at the site of the epidural. She reports some radiation of the pain up her back, with movement. She reports when she is up on her feet she feels like the pain makes her weak. She denies any pain shoo ting down her legs, incontinence, paresthesias. Pain worsened last night, and elevated temperature was noted around 4 PM of 100.2, and 100.6 at 6 AM. She required pain medicine for relief of discomfort. When I was called temperature was 103.0 ?F. She denies any headache, nausea, vomiting. She denies any shortness of breath although she is slightly tachypneic. CTA of chest had already been done as well as lumbar spine CT. CTA demonstrated no infiltrate or clot. Lumbar spine CT demonstrated small amount ofm air in the spinal column and dorsal subcutaneous tissues likely postprocedural. Blood cultures were drawn at that time. Unasyn was initiated with concern of possibility of chorioa mnionitis, however no specific concerns of infection were noted at delivery. Review of Systems General: Reports: 10 or more systems reviewed and unremarkable except in HPI and below Const: Reports: fever(s), chills and fatigue Card: Denies: chest pain Resp: Denies: dyspnea GI: Denies: abdominal pain, nausea or vomiting Musc: Reports: back pain Neuro: Denies: numbness in extremities Medications/Allergies Allergies Allergy/AdvReac Type Severity Reaction Status Date / Time No Known Allergies Allergy Verified 10/16/21 15:53 Current Medications Generic Name Dose Route Start Last Admin Trade Name Freq PRN Reason Stop Dose Admin Acetaminophen 650 mg 08/25/22 09:21 08/26/22 04:24 Acetaminophen 325 Mg Tablet PO 650 mg Q6H PRN Administration Mild pain or temp > 100.4 Benzocaine 1 spray 08/25/22 17:54 08/27/22 00:49 Benzocaine-Menthol 78 Gm Canister TOPICAL 1 spray PRN PRN Administration PAIN Cyclobenzaprine HCl 10 mg 08/26/22 21:58 08/27/22 07:02 Cyclobenzaprine 10 Mg Tablet PO 10 mg TID PRN Administration MUSCLE SPASMS Docusate Sodium 100 mg 08/25/22 18:00 08/27/22 08:56 Docusate Sodium 100 Mg Capsule PO 100 mg BID SHARONA Administration Fentanyl 25 - 100 mcg 08/25/22 09:21 08/25/22 12:38 Fentanyl 50 Mcg/Ml Inj 2ml IVP 25 mcg Q1H PRN Administration SEVERE PAIN Hydroxyzine Pamoate 50 mg 08/25/22 09:21 08/27/22 07:16 Hydroxyzine 25 Mg Capsule PO 50 mg QID PRN Administration sleep, agitation or itching Lactated Ringer's 1,000 mls @ 125 mls/hr 08/27/22 08:15 08/27/22 09:51 Lactated Ringers IV 125 mls/hr .Q8H SHARONA Administration Vancomycin/PEG/NADA/Lysine/Water 1,250 mg in 250 mls @ 250 mls/hr 08/27/22 09:30 08/27/22 09:51 Vancocin IV 250 mls/hr Q8H SHARONA Administration Lanolin 1 applic 08/25/22 17:54 08/25/22 21:02 Lanolin Oint 7 Gm TOPICAL 1 applic PRN PRN Administration DRYNESS Oxycodone/Acetaminophen 1 tab 08/26/22 21:58 08/27/22 07:20 Oxycodone-Apap 10-325 Mg Tablet PO 1 tab Q4H PRN Administration MODERATE PAIN Multivit/Folic Acid/Iron 1 cap 08/26/22 09:00 08/27/22 08:56 Vitamin Capsule PO 1 cap DAILY SHARONA Administration PFSH Acute PFSH: Medical History ADD (attention deficit disorder) ADHD Anxiety Asthma Cervical radiculopathy Depression MDD (major depressive disorder) Migraine Paresthesia of both hands Psychiatric care PTSD (post-traumatic stress disorder) Renal stone Surgical History History of lithotripsy (~2019) History of tonsillectomy and adenoidectomy Family History Grandmother Breast cancer Mother Breast cancer Denies family history of Colon cancer Ovarian cancer Diabetes Heart disease Hypercholesteremia Hypertension Uterine cancer Thyroid disease Stroke Social History Smoking and tobacco status: never smoked Adopted: No Caregiver/support person: No Lives independently: Yes Marital status: Additional social history: - Tobacco use: Denies Alcohol use: Holidays/special occasions Drug use: Denies Female Reproductive History: : 4 Vitals/I&O/Wt Last Vital Signs Temp 103.0 F H 08/27/22 07:20 Pulse 136 H 08/27/22 07:20 Resp 26 H 08/27/22 07:20 BP 104/54 08/27/22 07:20 Pulse Ox 93 08/27/22 07:20 O2 Del Method 08/27/22 07:20 O2 Flow Rate 10 08/25/22 11:31 08/26/22 08/27/22 08/27/22 22:59 06:59 14:59 Intake Total 50 / 50 1050 / 1100 Balance 50 / 50 1050 / 1100 Physical Exam Narrative: General exam is a female, reporting back pain. Very worried the pain will not go away. HEENT: Atraumatic and normocephalic. Oropharynx clear. Neck is supple no lymphadenopathy thyromegaly Cardiovascular tachycardic, no murmur Lungs clear no wheezing or crackles Abdomen is soft, positive bowel sounds. No obvious organomegaly. No obvious tenderness. Back demonstrates small puncture site where epidural was done. Some pain to palpation. No significant bruising. No fluctuance. Neuro no obvious focal deficits. No sacral paresthesia. Good lower extremity strength exam deferred Extremities no cyanosis clubbing or edema, cap refill brisk Data 08/27/22 02:02 08/27/22 02:02 Other Labs: Blood cultures have been drawn and are pending. Calcium 7.9, LFTs normal with exception of alk phos of 152, albumin 3.1, urinalysis 5-10 reds, 0-4 whites. Coronavirus and influenza testing pending CTA as above, no pulmonary embolism Lumbosacral CT demonstrated small amount of air at epidural site, was otherwise negative Troponin had been performed earlier and was negative. EKG which I reviewed demonstrated sinus tachycardia, normal axis, nonspecific ST-T wave changes Micro: Microbiology 08/26/22 17:45 Blood Culture - Preliminary Blood SPECIMEN COLLECTED 08/26/22 17:00 Blood Culture - Preliminary Blood SPECIMEN COLLECTED A&P Assessment and plan (1) Fever: Patient has significant fever, leukocytosis, and left shift following vaginal delivery. Certainly there was a concern for chorioamnionitis secondary to fever in the peripartum period. She was placed on Unasyn August 26 around 6 PM. CTA demonstrates no pneumonia Blood cultures have been drawn and pending I have ordered a urinalysis and it does not appear significant. Urine culture will be done as well. She has no evidence of neck pain, severe headache suggesting meningitis at this time. She does have severe pain at the site of her epidural, which will need to be explored further. A small amount of air was seen there on CT scan but this may be secondary to procedure itself. Will obtain a COVID and influenza testing secondary to fever Change antibiotics to Zosyn and vancomycin to broaden spectrum As blood pressure was slightly soft will give a bolus of LR, 1 L and start LR at 125 cc an hour Explore back pain with MRI lumbar spine with and without contrast. Ativan can be given preprocedural secondary to her severe anxiety with close spaces I have visited with her primary care provider, as well as nursing on OB floor to give me a call should she have any significant worsening so intervention can occur. I have visited with Dr. Ramirez, and nursing, regarding the likely need for pumping with expansion of antibiotics and MRI contrast. (2) Back pain: See above Plan Thank you for this consultation Consult Attestations Medical Necessity Statement: As per primary Diagnoses Fever R50.9 Back pain M54.9 Time Spent (min) 63
[2022-08-27] MEDS: piperacillin-tazobactam 3.375 GM in sodium chloride 0.9% (plus) 50 ML IV ×2 (10:26→18:41)
--- NOTE | 2022-08-27 10:54 | PC.NURSE ---
Spoke with MRI at this time who states they will be over in 10-15 minutes to get patient.
[2022-08-27 10:55] LABS: Influenza A by IFA Negative (Negative); Influenza B by IFA Negative (Negative)
--- NOTE | 2022-08-27 11:08 | PC.NURSE ---
Patient voided on bedpan at this time, patient offered to ambulate to bathroom and patient states she is in too much pain to ambulate to bathroom and request to utilize bed robertson.
[2022-08-27] MEDS: gadobenate dimeglumine 20 mL vial IV (12:07)
[2022-08-27 12:20] LABS: Adenovirus Not Detected (NOT DETECT); Chlamydia Pneumoniae Not Detected (NOT DETECT); Coronavirus 229E,HKU1,NL63,OC4 Not Detected (NOT DETECT); Human Metapneumovirus Not Detected (NOT DETECT); Human Rhinovirus/Enterovirus Not Detected (NOT DETECT); Influenza A Not Detected (NOT DETECT); Influenza A H1 Not Detected (NOT DETECT); Influenza A H1-2009 Not Detected (NOT DETECT); Influenza A H3 Not Detected (NOT DETECT); Influenza B Not Detected (NOT DETECT); Mycoplasma Pneumoniae Not Detected (NOT DETECT); Parainfluenza Virus Type 1 Not Detected (NOT DETECT); Parainfluenza Virus Type 2 Not Detected (NOT DETECT); Parainfluenza Virus Type 3 Not Detected (NOT DETECT); Parainfluenza Virus Type 4 Not Detected (NOT DETECT); Respiratory Syncytial Virus A Not Detected (NOT DETECT); Respiratory Syncytial Virus B Not Detected (NOT DETECT); SARS-COV-2 Not Detected (NOT DETECT)
[2022-08-27] MEDS: acetaminophen 325 mg Tablet 650 MG PO (13:18)
--- NOTE | 2022-08-27 13:58 | PC.NURSE ---
Patient advised at this time she should dispose of breastmilk for the next twenty four hours r/t MRI contrast per Dr. Nj.
[2022-08-27] MEDS: enoxaparin 100 mg/mL Syringe 90 MG SUBCUT (15:23)
[2022-08-28] VITALS (11 sets, daily range): BP systolic 96–120; BP diastolic 61–79; PULSE 73–103; RESP 16–24; TEMP 36.8–37.9; O2SAT 95–99
[2022-08-28] MEDS: piperacillin-tazobactam 3.375 GM in sodium chloride 0.9% (plus) 50 ML IV ×3 (00:15→18:03)
[2022-08-28] MEDS: acetaminophen 325 mg Tablet 650 MG PO ×3 (01:32→18:11)
[2022-08-28] MEDS: oxyCODONE-APAP 10-325 mg Tablet 1 TAB PO ×5 (02:29→20:00)
[2022-08-28] MEDS: vancomycin 1,250 MG/250 ML PIGGYBACK 250 MG IV ×2 (04:25→12:56)
[2022-08-28] MEDS: enoxaparin 100 mg/mL Syringe 90 MG SUBCUT ×2 (04:26→17:55)
[2022-08-28 04:42] LABS: Basophils # 0.1 10^3/uL (0.0-0.1); Basophils % 0.3 %; Eosinophils # 0.1 10^3/uL (0.0-0.8); Eosinophils % 0.6 %; Hematocrit 28.2 % (37.0-47.0); Hemoglobin 8.9 g/dL (11.5-15.3); Lymphocytes # 1.6 10^3/uL (0.8-4.8); Lymphocytes % 7.9 %; Mean Corpuscular HGB Conc 31.6 g/dL (30.0-36.0); Mean Corpuscular Hemoglobin 27.1 pg (28.0-34.0); Mean Platelet Volume 11.1 fL (7.4-10.4); Monocytes # 1.8 10^3/uL (0.2-0.9); Monocytes % 8.8 %; Neutrophils # 16.13 10^3/uL (1.8-7.7); Neutrophils % 80.3 %; Nucleated Red Blood Cells % 0 %; Platelet Count 194 10^3/cmm (130-400); Red Blood Count 3.28 10^6/uL (4.1-5.3); Red Cell Distribution Width 15.1 % (12.1-15.1); White Blood Count 20.1 10^3/uL (4.0-10.0)
[2022-08-28] MEDS: lactated ringers 1,000 ML 125 ML IV (04:44)
[2022-08-28 05:13] LABS: Alanine Aminotransferase 8 U/L (0-33); Alkaline Phosphatase 105 U/L (35-105); Anion Gap 15.8 (5-19); Aspartate Amino Transferase 17 U/L (0-32); Blood Urea Nitrogen 7 mg/dL (6-20); Calcium 7.3 mg/dL (8.5-10.5); Carbon Dioxide 17 mmol/L (22-29); Chloride 106 mmol/L (98-107); Globulin 2.5 g/dL (1.3-4.6); Glomerular Filtration Rate 95.8 mL/min (90-130); Glucose 102 mg/dL (65-115); Osmolality Calculated 278 mOsm/kg (285-295); Potassium 3.8 mmol/L (3.5-5.1); Sodium 135 mmol/L (136-145); Total Bilirubin 0.2 mg/dL (0.15-1.2); Total Protein 4.5 g/dL (6.6-8.7)
--- NOTE | 2022-08-28 07:31 | P.PN_ITS ---
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 The patient is feeling significantly better today. Patient is having less pain. Last fever was yesterday afternoon. Patient has no new concerns today. Urine output has been good and signs are appropriate. Medications: Reviewed: Yes Labor: Station: +3 Amniotic Membrane Status: Ruptured Monitor Mode: External Contraction Pattern: Regular Vitals/I&O/Wt Last Vital Signs Temp 99.6 F 08/28/22 04:45 Pulse 103 H 08/28/22 04:45 Resp 18 08/28/22 04:45 BP 100/63 08/28/22 04:45 Pulse Ox 97 08/28/22 04:45 O2 Del Method 08/28/22 04:45 O2 Flow Rate 10 08/25/22 11:31 08/27/22 08/28/22 08/28/22 22:59 06:59 14:59 Intake Total 1250 / 2550 1000 / 3550 Balance 1250 / 2550 1000 / 3550 Physical Exam Narrative: k Const: COMMON NORMALS: patient oriented x3 GENERAL APPEARANCE: in distress and anxious HENMT: COMMON NORMALS: normocephalic, hearing grossly normal bilaterally and moist oral mucous membranes HEAD & SCALP: normocephalic Neck/C-Spine: GENERAL: Yes normal visual inspection, No lymphadenopathy and No Meningeal signs present Chest: COMMONS NORMALS: normal inspection of the chest CHEST: Yes tenderness costochondral junction Resp: COMMON NORMALS: normal respiratory effort and No use of accessory muscles Cardio: COMMON NORMALS: regular rhythm RATE: tachycardic RHYTHM: regular rhythm GI: COMMON NORMALS: Normal to inspection, nondistended, normoactive bowel sounds present : COMMON NORMALS: Yes no CVA tenderness BLADDER/KIDNEY EXAM: Yes no CVA tenderness Back/Pelvis: COMMON NORMALS: no CVA tenderness and thoracic and lumbar spine normal to inspection LUMBAR SPINE/LOWER BACK: Yes pain with ROM and Yes lumbar spinal tenderness (Overlying site of epidural injection. No overlying erythema or warmth.) Extremity: COMMON NORMALS: no clubbing, cyanosis or edema Neuro: COMMON NORMALS: patient oriented x3 and moves all extremities Psych: COMMON NORMALS: mental status grossly normal MOOD & AFFECT: Yes anxious, Yes tearful and Yes fearful Skin: COMMON NORMALS: no rashes or lesions noted GENERAL SKIN EXAM: no rashes or lesions noted Data 08/28/22 04:30 08/28/22 04:30 Micro: Microbiology 08/26/22 17:45 Blood Culture - Preliminary Blood NEGATIVE TO DATE 08/26/22 17:00 Blood Culture - Preliminary Blood NEGATIVE TO DATE A&P Assessment and plan (1) Normal vaginal delivery: Continue routine care (2) Sepsis after obstetrical procedure: Patient's symptoms have significantly resolved. Vital signs are significantly better. We will stop fluids today. (3) Thrombophlebitis, , deep, delivered w/ condition: Warren diagnosis given information being and patient's problems. Continue broad-spectrum antibiotics. Likely will stop vancomycin assuming blood cultures are negative at 48 hours. Continue anticoagulation until 48 hours fever free Attestations Medical Necessity Statement*: Anticipate greater than 2 midnight stay. Likely will stay through the weekend. Will need to remain hospitalized until fever free for 48 hours. Coding Level of Care Code Acute Code for [facility] Fwd Diagnoses Normal vaginal delivery O80 Sepsis after obstetrical procedure O86.04 Thrombophlebitis, , deep, delivered w/ condition O87.1
--- NOTE | 2022-08-28 09:09 | PM.PN ---
Subjective Subjective: Patient reports she feels much better today. Less pain at her epidural site. No shortness of breath. Medications: Reviewed: Yes Vitals/I&O/Wt Last Vital Signs Temp 99.6 F 08/28/22 04:45 Pulse 103 H 08/28/22 04:45 Resp 16 08/28/22 07:31 BP 100/63 08/28/22 04:45 Pulse Ox 97 08/28/22 07:31 O2 Del Method 08/28/22 04:45 O2 Flow Rate 10 08/25/22 11:31 08/27/22 08/28/22 08/28/22 22:59 06:59 14:59 Intake Total 1250 / 2550 1000 / 3550 300 / 300 Balance 1250 / 2550 1000 / 3550 300 / 300 Physical Exam Narrative: General exam is a female, appears much more comfortable Neck is supple no lymphadenopathy thyromegaly Cardiovascular regular rate and rhythm, no murmur Lungs clear no wheezing or crackles Abdomen is soft, positive bowel sounds. No obvious organomegaly. No obvious tenderness. Extremities no cyanosis clubbing or edema, cap refill brisk Data 08/28/22 04:30 08/28/22 04:30 Micro: Microbiology 08/26/22 17:45 Blood Culture - Preliminary Blood NEGATIVE TO DATE 08/26/22 17:00 Blood Culture - Preliminary Blood NEGATIVE TO DATE A&P Assessment and plan (1) Fever: Patient has significant fever, leukocytosis, and left shift following vaginal delivery. Certainly there was a concern for chorioamnionitis secondary to fever in the peripartum period. She was placed on Unasyn August 26 around 6 PM. CTA demonstrates no pneumonia Blood cultures have been drawn and negative to date Temperatures are improving substantially Urinalysis appeared overall negative. Culture pending She has no evidence of neck pain, severe headache suggesting meningitis. She does have severe pain at the site of her epidural, which will need to be explored further. A small amount of air was seen there on CT scan but this may be secondary to procedure itself. MRI did not demonstrate any significant abnormality but suggested the possibility of pelvic thrombophlebitis COVID and influenza testing were negative IV antibiotics were changed to vancomycin and Zosyn yesterday. If blood cultures remain negative at 48 hours likely vancomycin can be discontinued. With improvement fluid will be discontinued today I have visited with her primary care provider, as well as nursing on OB floor, and the patient. With her improvement, and no findings concerning for meningitis, or epidural abscess fever was likely secondary to chorioamnionitis or possibly pelvic thrombophlebitis. Lovenox full dose was initiated yesterday. At this point I will sign off, and defer continued treatment of these conditions to Dr. Ramirez who has indicated to me he is comfortable completing her treatment. (2) Back pain: See above Plan Thank you for this consultation Attestations Medical Necessity Statement*: As per primary Diagnoses Fever R50.9 Back pain M54.9 Time Spent (min) 24
[2022-08-28] MEDS: prenatal vitamin Capsule 1 CAP PO (09:13)
[2022-08-28] MEDS: docusate sodium 100 mg Capsule PO (09:13)
[2022-08-28 12:20] LABS: Vancomycin Trough 13.2 ug/mL (10-15)
[2022-08-29] VITALS (11 sets, daily range): BP systolic 101–126; BP diastolic 64–75; PULSE 67–88; RESP 16–18; TEMP 36.4–36.8; O2SAT 96–98
[2022-08-29] MEDS: oxyCODONE-APAP 10-325 mg Tablet 1 TAB PO ×6 (00:01→22:14)
[2022-08-29] MEDS: piperacillin-tazobactam 3.375 GM in sodium chloride 0.9% (plus) 50 ML IV ×3 (02:22→17:17)
[2022-08-29] MEDS: enoxaparin 100 mg/mL Syringe 90 MG SUBCUT ×2 (06:35→18:42)
--- NOTE | 2022-08-29 06:41 | PM.OBGYPN ---
[employer] Subjective Subjective: Interval history: This is a 36-year-old that is post vaginal delivery day 4. Patient continues to improve however she is still having some pain and requiring products for pain control. Patient has not had a fever since 1 AM on 08/28. He has no new concerns today. Bleeding and lochia is appropriate. Labor: Station: +3 Amniotic Membrane Status: Ruptured Monitor Mode: External Contraction Pattern: Regular Vitals/I&O/Wt Last Vital Signs Temp 97.8 F 08/29/22 04:21 Pulse 67 08/29/22 04:21 Resp 16 08/29/22 04:21 BP 103/69 08/29/22 04:21 Pulse Ox 98 08/29/22 04:21 O2 Del Method 08/29/22 04:21 O2 Flow Rate 10 08/25/22 11:31 08/28/22 08/28/22 08/29/22 14:59 22:59 06:59 Intake Total 883.333 / 883.333 300 / 1183.333 Balance 883.333 / 883.333 300 / 1183.333 Physical Exam Narrative: k Const: COMMON NORMALS: patient oriented x3 GENERAL APPEARANCE: in distress and anxious HENMT: COMMON NORMALS: normocephalic, hearing grossly normal bilaterally and moist oral mucous membranes HEAD & SCALP: normocephalic Neck/C-Spine: GENERAL: Yes normal visual inspection, No lymphadenopathy and No Meningeal signs present Chest: COMMONS NORMALS: normal inspection of the chest CHEST: Yes tenderness costochondral junction Resp: COMMON NORMALS: normal respiratory effort and No use of accessory muscles Cardio: COMMON NORMALS: regular rhythm RATE: tachycardic RHYTHM: regular rhythm GI: COMMON NORMALS: Normal to inspection, nondistended, normoactive bowel sounds present : COMMON NORMALS: Yes no CVA tenderness BLADDER/KIDNEY EXAM: Yes no CVA tenderness Back/Pelvis: COMMON NORMALS: no CVA tenderness and thoracic and lumbar spine normal to inspection LUMBAR SPINE/LOWER BACK: Yes pain with ROM and Yes lumbar spinal tenderness (Overlying site of epidural injection. No overlying erythema or warmth.) Extremity: COMMON NORMALS: no clubbing, cyanosis or edema Neuro: COMMON NORMALS: patient oriented x3 and moves all extremities Psych: COMMON NORMALS: mental status grossly normal MOOD & AFFECT: Yes anxious, Yes tearful and Yes fearful Skin: COMMON NORMALS: no rashes or lesions noted GENERAL SKIN EXAM: no rashes or lesions noted Data 08/28/22 04:30 08/28/22 04:30 Micro: Microbiology 08/27/22 09:15 Urine Culture - Preliminary Urine Catheterized A&P Assessment and plan (1) Thrombophlebitis, , deep, delivered w/ condition: Continue enoxaparin and broad-spectrum antibiotic until fever free for 48 hours. (2) Sepsis after obstetrical procedure: Resolved (3) Normal vaginal delivery: Continue routine care (4) Endometritis following delivery: Likely the inciting event. Treat with antibiotics as above. Attestations Medical Necessity Statement*: Possibly discharge home tomorrow. Coding Level of Care Code Acute Code for [facility] Diagnoses Thrombophlebitis, , deep, delivered w/ condition O87.1 Sepsis after obstetrical procedure O86.04 Normal vaginal delivery O80 Endometritis following delivery O86.12
[2022-08-29] MEDS: docusate sodium 100 mg Capsule PO ×2 (08:15→17:17)
[2022-08-29] MEDS: prenatal vitamin Capsule 1 CAP PO (08:15)
[2022-08-30] VITALS (7 sets, daily range): BP systolic 102–116; BP diastolic 68–74; PULSE 61–71; RESP 16–18; TEMP 36.6–37.3; O2SAT 97–98
[2022-08-30] MEDS: piperacillin-tazobactam 3.375 GM in sodium chloride 0.9% (plus) 50 ML IV ×2 (01:02→09:17)
[2022-08-30] MEDS: oxyCODONE-APAP 10-325 mg Tablet 1 TAB PO ×2 (03:07→07:35)
[2022-08-30] MEDS: enoxaparin 100 mg/mL Syringe 90 MG SUBCUT (06:21)
--- NOTE | 2022-08-30 08:30 | PM.OBGYDC ---
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 Ward Ramirez Primary Care Provider: Anuj Valentin MD Diagnoses at Discharge Discharge Diagnosis (1) Thrombophlebitis, , deep, delivered w/ condition: Status: Acute (2) Sepsis after obstetrical procedure: Details from hospital stay: resolved Status: Acute (3) Normal vaginal delivery: Status: Acute (4) Endometritis following delivery: Status: Acute Reason for Visit Reason for Visit: Induction Hospital Course Hospital Course This is a 36-year-old that presented for induction of labor the patient was started on Cytotec and went into a normal contraction pattern. The patient soon after delivered a viable infant male. Soon after delivery the patient developed significant pain at the site of epidural and became febrile. Patient was started on IV antibiotics for presumed intermittent ureters. However, the patient continued to have significant pain at the site of epidural so CT, and MRI were performed of her L-spine. CT was negative and MRI was fairly unremarkable except for possible thrombophlebitis. CTA of the chest was performed and was negative. Biotics were changed to broad-spectrum to Vanco and Zosyn and Lovenox was started. Patient did have improvement after the transition and vancomycin was stopped after 48 hours negative blood cultures. Patient continued to improve and over the last 48 hours has been afebrile. Information Peripartum Data: Infant Delivery Method: Vaginal Physical Exam Narrative: k Const: COMMON NORMALS: patient oriented x3 GENERAL APPEARANCE: in distress and anxious HENMT: COMMON NORMALS: normocephalic, hearing grossly normal bilaterally and moist oral mucous membranes HEAD & SCALP: normocephalic Neck/C-Spine: GENERAL: Yes normal visual inspection, No lymphadenopathy and No Meningeal signs present Chest: COMMONS NORMALS: normal inspection of the chest CHEST: Yes tenderness costochondral junction Resp: COMMON NORMALS: normal respiratory effort and No use of accessory muscles Cardio: COMMON NORMALS: regular rhythm RATE: tachycardic RHYTHM: regular rhythm GI: COMMON NORMALS: Normal to inspection, nondistended, normoactive bowel sounds present Back/Pelvis: COMMON NORMALS: thoracic and lumbar spine normal to inspection Extremity: COMMON NORMALS: no clubbing, cyanosis or edema Neuro: COMMON NORMALS: patient oriented x3 and moves all extremities Psych: COMMON NORMALS: mental status grossly normal MOOD & AFFECT: Yes anxious, Yes tearful and Yes fearful Skin: COMMON NORMALS: no rashes or lesions noted GENERAL SKIN EXAM: no rashes or lesions noted History History History 4 Term 4 0 Miscarriages/Ectopic 0 Living Children 4 Discharge Data Studies Completed and Pending Completed Studies During Hospitalization Category Date Time Status CT lumbar spine wo con* [id number] Routine Cat Scan 08/26/22 16:37 Completed CTA PE [CT angio chest PE protcl [id number]] Stat Cat Scan 08/27/22 05:03 Completed MR lumbar spine wo/w con [id number] Stat MRI 08/27/22 08:31 Completed Pending at discharge Category Date Time Status Blood Culture Stat Lab 08/26/22 17:45 Results Radiology Impressions Lumbar Spine CT 08/26/22 16:37 IMPRESSION: No acute findings. Chest CTA 08/27/22 05:03 IMPRESSION: 1. No CTA evidence of pulmonary embolism, thoracic aortic aneurysm or thoracic aortic dissection. 2. Unremarkable CT appearance of the lungs. 3. Suspected tiny hiatal hernia. Lumbar Spine MRI 08/27/22 08:31 IMPRESSION: 1. No epidural hematoma. No mass effect upon the cord or nerve roots. 2. Very small central disc protrusion at L4-5. 3. Very mild heterogeneity in the expected location of the RIGHT pelvic veins. Consider septic thrombophlebitis as possible etiology if this has not been considered. Notified Presley Nj MD at 08/27/2022 1:16 PM. Laboratory Results WBC 20.1 10^3/uL (4.0-10.0) H 08/28/22 04:30 RBC 3.28 10^6/uL (4.1-5.3) L 08/28/22 04:30 Hgb 8.9 g/dL (11.5-15.3) L 08/28/22 04:30 Hct 28.2 % (37.0-47.0) L 08/28/22 04:30 MCV 86.0 fl (81-99) 08/28/22 04:30 MCH 27.1 pg (28.0-34.0) L 08/28/22 04:30 MCHC 31.6 g/dL (30.0-36.0) 08/28/22 04:30 RDW 15.1 % (12.1-15.1) 08/28/22 04:30 Plt Count 194 10^3/cmm (130-400) 08/28/22 04:30 MPV 11.1 fL (7.4-10.4) H 08/28/22 04:30 Neut % (Auto) 80.3 % 08/28/22 04:30 Lymph % (Auto) 7.9 % 08/28/22 04:30 [place] % (Auto) 8.8 % 08/28/22 04:30 Eos % (Auto) 0.6 % 08/28/22 04:30 Baso % (Auto) 0.3 % 08/28/22 04:30 Neut # (Auto) 16.13 10^3/uL (1.8-7.7) H 08/28/22 04:30 Lymph # (Auto) 1.6 10^3/uL (0.8-4.8) 08/28/22 04:30 [place] # (Auto) 1.8 10^3/uL (0.2-0.9) H 08/28/22 04:30 Eos # (Auto) 0.1 10^3/uL (0.0-0.8) 08/28/22 04:30 Baso # (Auto) 0.1 10^3/uL (0.0-0.1) 08/28/22 04:30 Nucleated RBC % (auto) 0 % 08/28/22 04:30 Nucleated RBCs # 0.0 /100WBC 08/28/22 04:30 D-Dimer 2.83 ug/mIFEU (0-0.59) H 08/27/22 02:02 Sodium 135 mmol/L (136-145) L 08/28/22 04:30 Potassium 3.8 mmol/L (3.5-5.1) 08/28/22 04:30 Chloride 106 mmol/L (98-107) 08/28/22 04:30 Carbon Dioxide 17 mmol/L (22-29) L 08/28/22 04:30 Anion Gap 15.8 (5-19) 08/28/22 04:30 BUN 7 mg/dL (6-20) 08/28/22 04:30 Creatinine 0.7 mg/dL (0.5-0.9) 08/28/22 04:30 GFR Calculation 95.8 mL/min (90-130) 08/28/22 04:30 Glucose 102 mg/dL (65-115) 08/28/22 04:30 Calculated Osmolality 278 mOsm/kg (285-295) L 08/28/22 04:30 Lactate 2.8 mmol/L (0.5-2.2) H 08/27/22 08:27 Calcium 7.3 mg/dL (8.5-10.5) L 08/28/22 04:30 Total Bilirubin 0.2 mg/dL (0.15-1.2) 08/28/22 04:30 Direct Bilirubin 0.20 mg/dL (0.00-0.30) 08/27/22 02:02 AST 17 U/L (0-32) 08/28/22 04:30 ALT 8 U/L (0-33) 08/28/22 04:30 Alkaline Phosphatase 105 U/L (35-105) 08/28/22 04:30 Troponin T Gen 5 ng/L 6 ng/L (0-10) 08/27/22 02:02 Total Protein 4.5 g/dL (6.6-8.7) L 08/28/22 04:30 Albumin 2.0 g/dL (3.5-5.2) L 08/28/22 04:30 Globulin 2.5 g/dL (1.3-4.6) 08/28/22 04:30 Urine Color Yellow (Yellow) 08/27/22 09:15 Urine Appearance Clear (CLEAR) 08/27/22 09:15 Urine pH 5 (5-7) 08/27/22 09:15 Ur Specific [place] 1.005 (1.005-1.030) 08/27/22 09:15 Urine Protein 1+ (Negative) H 08/27/22 09:15 Urine Glucose (UA) Norm (Normal) 08/27/22 09:15 Urine Ketones 1+ (Negative) H 08/27/22 09:15 Urine Blood 2+ (Negative) H 08/27/22 09:15 Urine Nitrate Negative (Negative) 08/27/22 09:15 Urine Bilirubin Neg (Negative) 08/27/22 09:15 Urine Urobilinogen 1 mg/dL (Negative) H 08/27/22 09:15 Ur Leukocyte Esterase Negative (Negative) 08/27/22 09:15 Urine RBC 5-10 /hpf (0-2) H 08/27/22 09:15 Urine WBC 0-4 /hpf (0-5) H 08/27/22 09:15 Ur Squamous Epith Cells 0-4 /hpf (0-5) H 08/27/22 09:15 Amorphous Sediment Not Reportable 08/27/22 09:15 Urine Bacteria None /hpf (NONE) 08/27/22 09:15 Urine Mucus Trace /hpf 08/27/22 09:15 Nasal Influ A H1 2008 PCR Cancelled 08/27/22 09:49 Vancomycin Trough 13.2 ug/mL (10-15) 08/28/22 11:43 Coronavirus 229E (PCR) Not detected (NOT DETECT) 08/27/22 09:49 Influenza A (H1) PCR Cancelled 08/27/22 09:49 Influenza A (H3) PCR Cancelled 08/27/22 09:49 Influenza Type A Ag Cancelled 08/27/22 09:49 Influenza Type A Ag Negative (Negative) 08/27/22 09:49 Influenza Type A (PCR) Cancelled 08/27/22 09:49 Influenza Type B Ag Cancelled 08/27/22 09:49 Influenza Type B Ag Negative (Negative) 08/27/22 09:49 Influenza Type B (PCR) Cancelled 08/27/22 09:49 SARS-CoV-2 (PCR) Not detected (NOT DETECT) 08/27/22 09:49 Vitals Last Vital Signs Temp 98.0 F 08/30/22 08:08 Pulse 61 08/30/22 08:08 Resp 16 08/30/22 08:08 BP 107/72 08/30/22 08:08 Pulse Ox 98 08/30/22 08:08 O2 Del Method 08/30/22 08:08 O2 Flow Rate 10 08/29/22 07:42 Discharge Plan Discharge Patient Disposition: Home Condition: Stable Prescriptions: New oxycodone-acetaminophen 10-325 mg Tablet 1 tab PO Q6H PRN (Reason: Moderate Pain) Qty: 10 0RF Discharge Orders: Discharge Order (Routine); Ordered 04/02/23 Ordered By: Chidi Ramirez Referrals: Chidi Ramirez MD [Physician] - 10/12/22 8:55 am Discharge Diet: Usual diet Discharge Activity: Limit activity as instructed Patient Instructions: Depression (DC), Bleeding (DC), Opioid Safety (DC), Preeclampsia and Eclampsia After Delivery (GEN), Hemorrhage (DC), OB Discharge Report, OB Food/Drug Interaction Guide, OB Care at Home, Opioid Safety, OB Vaginal Deliveries, Abnormal Bleeding Discharge Attestations INFANTRY INDIRECT [employer]RE CREWMEMBER Time Spent in Discharge Care*: less than 30 min Coding Level of Care Code Acute Code for [facility] Diagnoses Thrombophlebitis, , deep, delivered w/ condition O87.1 Sepsis after obstetrical procedure O86.04 Normal vaginal delivery O80 Endometritis following delivery O86.12
[2022-08-30] MEDS: prenatal vitamin Capsule 1 CAP PO (09:17)
[2022-08-30] MEDS: docusate sodium 100 mg Capsule PO (09:17)
== END 2022-08-30 10:55 | disposition home or self-care (01) | DRG 805 ==
LOC: OPOB 15:20 → OBGYN 15:20
PROVIDERS: Internal Medicine; Admitting Provider Family Medicine; PCP Family Medicine; Visit Provider Family Medicine
DX: O48.0 Post-term pregnancy (principal); O86.81 Puerperal septic thrombophlebitis; Z37.0 Single live birth; O86.12 Endometritis following delivery; Z3A.40 40 weeks gestation of pregnancy; O99.344 Other mental disorders complicating childbirth; O75.89 Other specified complications of labor and delivery; F90.9 Attention-deficit hyperactivity disorder, unspecified type; F41.9 Anxiety disorder, unspecified; J45.909 Unspecified asthma, uncomplicated; M54.10 Radiculopathy, site unspecified; F32.9 Major depressive disorder, single episode, unspecified; F43.10 Post-traumatic stress disorder, unspecified; O76 Abnormality in fetal heart rate and rhythm complicating labor and delivery; O70.1 Second degree perineal laceration during delivery
CPT/HCPCS: 36415; 59025; 59409; 71275; 72131; 72158; 80048; 80053; 80076; 80202; 81001; 83605; 84484; 85025; 85027; 85378; 87040; 87086; 87635; 87804; 93005; 96372; 96374; A9577; J0295; J1170; J1650; J2360; J2543; J2590; J2795; J3010; J3370; J7120; J7121; Q9967

== ENCOUNTER 2024-09-28 15:11 | Outpatient (CLI) | payer MEDICAID, SELFPAY ==
--- NOTE | 2024-09-28 15:14 | MM_ITS ---
WS: [id number] BILATERAL 3D TOMOSYNTHESIS DIGITAL SCREENING MAMMOGRAPHY WITH CAD CLINICAL INFORMATION: SCREENING HISTORY: Screening mammogram. No current complaints. COMPARISON: 2019 TECHNIQUE: Bilateral CC and MLO views. FINDINGS: The breasts are composed of heterogeneous fibroglandular density tissue, which can limit the detection of small underlying mass lesions. No suspicious mass, asymmetry, calcifications, or architectural distortion. No evidence of malignancy. [place] centered calcification LEFT breast. MM/MM scr tomosynthesis [id number] IMPRESSION: DENSITY: There are scattered areas of fibroglandular density. BI-RADS: 2 - Benign. FOLLOW UP: 1 Year Follow-up Recommend return to annual screening mammography.
== END 2024-09-28 15:12 | disposition home or self-care (01) ==
LOC: RAD 15:12
PROVIDERS: PCP Family Medicine; Visit Provider Family Medicine
DX: Z12.31 Encounter for screening mammogram for malignant neoplasm of breast (principal); R92.323 Mammographic fibroglandular density, bilateral breasts; R92.1 Mammographic calcification found on diagnostic imaging of breast
CPT/HCPCS: 77063; 77067